=== PATIENT | female | born 1940 | race Caucasian/White ===

== ENCOUNTER 2017-04-23 13:05 | Inpatient (IN) | payer MEDICARE, OTHER ==
[~2017-04-23] VITALS: Ht 167.6 cm; Wt 63.5 kg
[~2017-04-23 13:05] MED LIST: CARB1TAB18 PO; CIPR-278 PO; DIVA125T PO; DIVA250T25 PO; DOCU250C16 PO; ESCI10TA PO; LORA0.5T2 PO; METF500T4 PO; NIFE60TA12 PO; OMEP20TA25 PO; QUET50TA PO; RISP.5 PO; SIMV20TA6 PO; TRAZ-144 PO; VICOT PO
[2017-04-23] MEDS ORDERED: FERR-89 PO (14:15)
[2017-04-23] MEDS ORDERED: GABA-531 PO (14:15)
[2017-04-23 14:28] LABS: BASOPHILS # (AUTO) 0.02 K/uL (0.00-0.20); BASOPHILS % (AUTO) 0.1 % (0.0-2.0); EOSINOPHILS # (AUTO) 0.07 K/uL (0.00-0.70); EOSINOPHILS % (AUTO) 0.44 % (1.0-6.0); HEMATOCRIT 38.5 % (36-46); HEMOGLOBIN 12.8 g/dL (12.0-16.0); LYMPHOCYTES # (AUTO) 2.4 K/uL (1.0-4.8); LYMPHOCYTES % (AUTO) 14.2 % (22.0-44.0); MEAN CORPUSCULAR HEMOGLOBIN 30.3 pg (26.0-34.0); MEAN CORPUSCULAR HGB CONC 33.3 G/dL (31.0-37.0); MEAN CORPUSCULAR VOLUME 91 fL (80-100); MONOCYTES # (AUTO) 1.4 K/uL (0.1-1.0); MONOCYTES % (AUTO) 8.4 % (2.0-9.0); NEUTROPHILS # (AUTO) 13.1 K/uL (1.8-7.7); NEUTROPHILS % (AUTO) 76.9 % (40.0-70.0); PLATELET COUNT (AUTO) 147 K/uL (150-450); RED BLOOD CELL COUNT(AUTO) 4.24 MIL/uL (4.00-5.20); RED CELL DISTRIBUTION WIDTH 14.9 % (11.5-14.5)
[2017-04-23 14:35] LABS: CALCIUM, TOTAL 9.3 mg/dL (8.8-10.5); CREATININE 1.36 mg/dL (0.60-1.30); POTASSIUM 3.7 mmol/L (3.5-5.1)
[2017-04-23 14:43] LABS: ALBUMIN 2.7 g/dL (3.4-5.0); BILIRUBIN,TOTAL 0.4 mg/dL (0.1-1.0); TOTAL PROTEIN, SERUM 7.2 g/dL (6.4-8.2)
[2017-04-23 14:43] LABS: GLUCOSE,POINT OF CARE 124 MG/DL (70-110)
[2017-04-23 17:33] LABS: APPEARANCE,URINE TURBID (CLEAR); GLUCOSE, URINE (UA) NEGATIVE (NEGATIVE); KETONES,URINE TRACE mg/dL (NEGATIVE); LEUKOCYTE ESTERASE ,URINE LARGE (NEGATIVE); NITRATE,URINE NEGATIVE (NEGATIVE); OCCULT BLOOD,URINE MODERATE (NEGATIVE); PROTEIN,URINE POS 1+ (NEGATIVE)
[2017-04-23 17:47] LABS: BILIRUBIN,URINE PRELIM. POSITIVE (NEGATIVE)
[2017-04-23 18:01] LABS: SQUAMOUS EPITHELIAL CELL,UR Moderate /LPF (None Seen)
[2017-04-23 18:02] LABS: WBC,URINE 51-100 /HPF (0-5)
[2017-04-23 18:05] LABS: BACTERIA,URINE Moderate /HPF (None Seen)
[2017-04-23] MEDS ORDERED: CefTRIAXone 1 GM/DEXTROSE 50 ML IV ONE (18:45)
[2017-04-23] MEDS ORDERED: 0.9% SODIUM CHLORIDE 10 ML SYRINGE IVP PRN (19:30)
[2017-04-23] MEDS ORDERED: ONDANSETRON HCL 4 MG/2 ML VIAL IVP PRN ×2 (19:30→19:45)
[2017-04-23] MEDS ORDERED: DEXTROSE 50%-WATER 25 GM/50 ML SYRINGE IVP PRN (19:30)
[2017-04-23] MEDS ORDERED: ACETAMINOPHEN 325 MG TABLET PO PRN ×2 (19:30→19:45)
[2017-04-23] MEDS ORDERED: MAGNESIUM HYDROXIDE SUSPENSION 30 ML UDCUP PO PRN (19:45)
[2017-04-23] MEDS ORDERED: ALBUTEROL SULFATE 2.5 MG/0.5 ML NEB SOLUTION NEB PRN (19:45)
[2017-04-23] MEDS ORDERED: BISACODYL 10 MG RECTAL RECTAL SUPPOSITORY PR PRN (19:45)
[2017-04-23] MEDS ORDERED: IPRATROPIUM BROMIDE 0.5 MG/2.5 ML NEB SOLUTION NEB PRN (19:45)
[2017-04-23 20:40] VITALS: BP 120/64
[2017-04-23] MEDS: SIMVASTATIN 20 MG TABLET PO SCH (21:25)
[2017-04-23] MEDS: DOCUSATE SODIUM 250 MG CAPSULE PO SCH (21:25)
[2017-04-23] MEDS: GABAPENTIN 300 MG CAPSULE PO SCH (21:25)
[2017-04-23] MEDS: HEPARIN SODIUM,PORCINE 5,000 UNITS/ML VIAL SQ SCH (21:25)
[2017-04-23 21:26] VITALS: BP 135/73
[2017-04-23] MEDS: SODIUM CHLORIDE 0.9% 1,000 ML IV SCH (21:34)
[2017-04-23] MEDS ORDERED: PNEUMOCOCCAL VACCINE POLYVALENT 0.5 ML VIAL [PPSV23] IM ONE (22:30)
[2017-04-23] MEDS: CARBIDOPA/LEVODOPA 10-100 MG TABLET PO SCH (23:16)
[2017-04-23] MEDS: QUEtiapine FUMARATE 25 MG TABLET PO SCH (23:16)
[2017-04-23 23:37] VITALS: BP 130/67
[2017-04-24 03:56] VITALS: BP 135/71
[2017-04-24 07:19] VITALS: BP 110/68
[2017-04-24 07:39] LABS: BASOPHILS # (AUTO) 0.02 K/uL (0.00-0.20); BASOPHILS % (AUTO) 0.2 % (0.0-2.0); EOSINOPHILS # (AUTO) 0.15 K/uL (0.00-0.70); EOSINOPHILS % (AUTO) 1.34 % (1.0-6.0); HEMATOCRIT 35.1 % (36-46); LYMPHOCYTES # (AUTO) 1.7 K/uL (1.0-4.8); LYMPHOCYTES % (AUTO) 15.4 % (22.0-44.0); MEAN CORPUSCULAR HEMOGLOBIN 30.3 pg (26.0-34.0); MEAN CORPUSCULAR HGB CONC 34.2 G/dL (31.0-37.0); MEAN CORPUSCULAR VOLUME 89 fL (80-100); MONOCYTES # (AUTO) 0.8 K/uL (0.1-1.0); MONOCYTES % (AUTO) 6.9 % (2.0-9.0); NEUTROPHILS # (AUTO) 8.6 K/uL (1.8-7.7); NEUTROPHILS % (AUTO) 76.2 % (40.0-70.0); PLATELET COUNT (AUTO) 116 K/uL (150-450); RED BLOOD CELL COUNT(AUTO) 3.96 MIL/uL (4.00-5.20); RED CELL DISTRIBUTION WIDTH 14.9 % (11.5-14.5)
[2017-04-24 07:51] LABS: HEMOGLOBIN A1C 5.3 % (4.5-6.2)
[2017-04-24 08:02] LABS: ALANINE AMINOTRANSFERASE 13 U/L (12-78); ALBUMIN 2.3 g/dL (3.4-5.0); ALKALINE PHOSPHATASE 80 U/L (46-116); ANION GAP 4 mmol/L (8-16); ASPARTATE AMINOTRANSFERASE 23 U/L (15-37); BILIRUBIN,TOTAL 0.3 mg/dL (0.1-1.0); CALCIUM, TOTAL 8.6 mg/dL (8.8-10.5); CARBON DIOXIDE 32 mmol/L (22-29); CHLORIDE 109 mmol/L (98-107); CREATININE 0.73 mg/dL (0.60-1.30); FREE T4 (FREE THYROXINE) 0.87 ng/dL (0.76-1.46); GLOMERULAR FILTR. RATE CALC > 60 mL/min (>60); GLUCOSE,RANDOM 87 mg/dL (70-110); PHOSPHORUS 3.2 mg/dL (2.5-4.9); POTASSIUM 4.1 mmol/L (3.5-5.1); SODIUM SERUM 145 mmol/L (136-145); THYROID STIMULATING HORMONE 0.57 uIU/mL (0.36-3.74); UREA NITROGEN, BLOOD 34 mg/dL (7-18)
[2017-04-24] MEDS: DOCUSATE SODIUM 250 MG CAPSULE PO SCH ×2 (08:32→19:47)
[2017-04-24] MEDS: GABAPENTIN 300 MG CAPSULE PO SCH ×3 (08:32→19:47)
[2017-04-24] MEDS: FERROUS SULFATE 325 MG EC TABLET PO SCH ×3 (08:32→17:28)
[2017-04-24] MEDS: NIFEdipine 60 MG ER TABLET PO SCH (08:32)
[2017-04-24] MEDS: RisperiDONE 0.5 MG TABLET PO SCH (08:32)
[2017-04-24] MEDS: PANTOPRAZOLE SODIUM 40 MG DR TABLET PO SCH (08:32)
[2017-04-24] MEDS: HEPARIN SODIUM,PORCINE 5,000 UNITS/ML VIAL SQ SCH ×2 (08:33→19:47)
[2017-04-24] MEDS: SODIUM CHLORIDE 0.9% 1,000 ML IV SCH (08:33)
[2017-04-24] MEDS: CARBIDOPA/LEVODOPA 10-100 MG TABLET PO SCH ×3 (08:33→19:47)
[2017-04-24] MEDS: DIVALPROEX SODIUM 125 MG DR TABLET PO SCH (08:49)
[2017-04-24 11:17] VITALS: BP 118/62
[2017-04-24] MEDS: DIVALPROEX SODIUM 250 MG DR TABLET PO SCH (17:28)
[2017-04-24] MEDS ORDERED: CefTRIAXone 1 GM/DEXTROSE 50 ML IV SCH (18:00)
[2017-04-24] MEDS ORDERED: MAGNESIUM SULFATE 2 GM in DEXTROSE 5%-WATER 50 ML IV PRN (18:15)
[2017-04-24] MEDS ORDERED: MAGNESIUM SULFATE 4 GM/WATER 100 ML IV PRN (18:15)
[2017-04-24] MEDS ORDERED: MAGNESIUM OXIDE 400 MG TABLET PO PRN (18:15)
[2017-04-24 19:43] VITALS: BP 151/77
[2017-04-24] MEDS: SIMVASTATIN 20 MG TABLET PO SCH (19:47)
[2017-04-24] MEDS: QUEtiapine FUMARATE 25 MG TABLET PO SCH (19:47)
[2017-04-24 23:43] VITALS: BP 111/55
[2017-04-25 00:24] LABS: GLUCOMETER DEV NAME(LOC) 5N 1M; GLUCOSE,POINT OF CARE 88 MG/DL (70-110)
[2017-04-25 00:24] LABS: GLUCOMETER DEV NAME(LOC) 5N 1M; GLUCOSE,POINT OF CARE 76 MG/DL (70-110)
[2017-04-25] MEDS: SODIUM CHLORIDE 0.9% 1,000 ML IV SCH ×2 (05:10→12:40)
[2017-04-25 05:29] VITALS: BP 121/60
[2017-04-25 07:06] VITALS: BP 131/63
[2017-04-25] MEDS: DOCUSATE SODIUM 250 MG CAPSULE PO SCH ×2 (08:40→20:13)
[2017-04-25] MEDS: PANTOPRAZOLE SODIUM 40 MG DR TABLET PO SCH (08:40)
[2017-04-25] MEDS: SILVER 45 ML GEL TP SCH (08:40)
[2017-04-25] MEDS: HEPARIN SODIUM,PORCINE 5,000 UNITS/ML VIAL SQ SCH ×2 (08:40→20:12)
[2017-04-25] MEDS: FERROUS SULFATE 325 MG EC TABLET PO SCH ×3 (08:40→17:24)
[2017-04-25] MEDS: GABAPENTIN 300 MG CAPSULE PO SCH ×3 (08:40→20:13)
[2017-04-25] MEDS: DIVALPROEX SODIUM 125 MG DR TABLET PO SCH (08:41)
[2017-04-25] MEDS: RisperiDONE 0.5 MG TABLET PO SCH (08:41)
[2017-04-25] MEDS: NIFEdipine 60 MG ER TABLET PO SCH (08:42)
[2017-04-25] MEDS: CARBIDOPA/LEVODOPA 10-100 MG TABLET PO SCH ×3 (08:42→20:13)
[2017-04-25] MEDS ORDERED: *CLINICAL-LEVOFLOXACIN IVPB DOSING CLINICAL ONE (08:45)
[2017-04-25] MEDS ORDERED: LEVOFLOXACIN 750 MG/D5% WATER 150 ML IV SCH (09:00)
[2017-04-25 11:11] VITALS: BP 122/60
[2017-04-25] MEDS: INSULIN ASPART 100 UNITS/ML SQ PRN (11:59)
[2017-04-25 16:16] VITALS: BP_SYST 156; BP_DIAS 11; BP_DIAS 110
[2017-04-25] MEDS: DIVALPROEX SODIUM 250 MG DR TABLET PO SCH (17:23)
[2017-04-25 19:47] VITALS: BP 153/94
[2017-04-25] MEDS: QUEtiapine FUMARATE 25 MG TABLET PO SCH (20:13)
[2017-04-25] MEDS: SIMVASTATIN 20 MG TABLET PO SCH (20:13)
[2017-04-25 20:54] LABS: GLUCOMETER DEV NAME(LOC) 5S 2N; GLUCOSE,POINT OF CARE 92 MG/DL (70-110)
[2017-04-25 20:54] LABS: GLUCOMETER DEV NAME(LOC) 5N 2R; GLUCOSE,POINT OF CARE 95 MG/DL (70-110)
[2017-04-25 20:54] LABS: GLUCOMETER DEV NAME(LOC) 5N 2R; GLUCOSE,POINT OF CARE 106 MG/DL (70-110)
[2017-04-25 20:54] LABS: GLUCOMETER DEV NAME(LOC) 5S 2N; GLUCOSE,POINT OF CARE 91 MG/DL (70-110)
[2017-04-25 20:54] LABS: GLUCOMETER DEV NAME(LOC) 5N 2R; GLUCOSE,POINT OF CARE 94 MG/DL (70-110)
[2017-04-25 20:54] LABS: GLUCOMETER DEV NAME(LOC) 5N 2R; GLUCOSE,POINT OF CARE 95 MG/DL (70-110)
[2017-04-26 00:11] VITALS: BP 141/82
[2017-04-26] MEDS: SODIUM CHLORIDE 0.9% 1,000 ML IV SCH ×2 (03:24→15:05)
[2017-04-26 04:34] VITALS: BP 150/83
[2017-04-26 06:48] LABS: GLUCOMETER DEV NAME(LOC) 5N 1M; GLUCOSE,POINT OF CARE 123 MG/DL (70-110)
[2017-04-26 07:42] VITALS: BP 155/56
[2017-04-26] MEDS: HEPARIN SODIUM,PORCINE 5,000 UNITS/ML VIAL SQ SCH (07:57)
[2017-04-26] MEDS: DOCUSATE SODIUM 250 MG CAPSULE PO SCH (07:57)
[2017-04-26] MEDS: GABAPENTIN 300 MG CAPSULE PO SCH ×2 (07:57→16:10)
[2017-04-26] MEDS: CARBIDOPA/LEVODOPA 10-100 MG TABLET PO SCH ×2 (07:57→16:10)
[2017-04-26] MEDS: PANTOPRAZOLE SODIUM 40 MG DR TABLET PO SCH (07:57)
[2017-04-26] MEDS: FERROUS SULFATE 325 MG EC TABLET PO SCH ×3 (07:57→17:23)
[2017-04-26] MEDS: DIVALPROEX SODIUM 125 MG DR TABLET PO SCH (07:58)
[2017-04-26] MEDS: NIFEdipine 60 MG ER TABLET PO SCH (07:58)
[2017-04-26] MEDS: RisperiDONE 0.5 MG TABLET PO SCH (07:58)
[2017-04-26] MEDS: SILVER 45 ML GEL TP SCH (07:59)
[2017-04-26 11:24] VITALS: BP 101/48
[2017-04-26] MEDS: INSULIN ASPART 100 UNITS/ML SQ PRN (13:11)
[2017-04-26 15:12] VITALS: BP 111/66
[2017-04-26] MEDS: DIVALPROEX SODIUM 250 MG DR TABLET PO SCH (17:23)
[2017-04-27 06:08] LABS: GLUCOMETER DEV NAME(LOC) 5S 2N; GLUCOSE,POINT OF CARE 93 MG/DL (70-110)
[2017-04-27 06:08] LABS: GLUCOMETER DEV NAME(LOC) 5N 2R; GLUCOSE,POINT OF CARE 93 MG/DL (70-110)
== END 2017-04-26 18:40 | DRG 871 ==
LOC: EMS 13:08 → 6N 18:52 → 5S 20:40
PROVIDERS: ADMIT Internal Medicine; ATTEND Internal Medicine
PROC: 0HDNXZZ Extraction of Left Foot Skin, External Approach (ICD-10-PCS; 2017-04-24)
PROC: 3E0234Z Introduction of Serum, Toxoid and Vaccine into Muscle, Percutaneous Approach (ICD-10-PCS; principal; 2017-04-26)
DX: A41.9 Sepsis, unspecified organism (principal); G92 Toxic encephalopathy; E11.40 Type 2 diabetes mellitus with diabetic neuropathy, unspecified; E11.621 Type 2 diabetes mellitus with foot ulcer; L97.429 Non-pressure chronic ulcer of left heel and midfoot with unspecified severity; N39.0 Urinary tract infection, site not specified; G20 Parkinson's disease; G80.9 Cerebral palsy, unspecified; K21.9 Gastro-esophageal reflux disease without esophagitis; I10 Essential (primary) hypertension; M19.90 Unspecified osteoarthritis, unspecified site; G30.9 Alzheimer's disease, unspecified; F02.80 Dementia in other diseases classified elsewhere, unspecified severity, without behavioral disturbance, psychotic disturbance, mood disturbance, and anxiety; Z83.3 Family history of diabetes mellitus; Z79.899 Other long term (current) drug therapy; Z23 Encounter for immunization
CPT/HCPCS: 51701; 70450; 82962; 83036; 83735; 84100; 84145; 84439; 84443; 87086; 90471; 93005; 93306; 93925; 93970; 96365; 97162; 97530; 99285; J0696; J1644; J1956; J3475; J7030; J7060

== ENCOUNTER 2019-03-15 22:21 | Inpatient (IN) | payer MEDICARE, OTHER ==
[~2019-03-15 22:21] MED LIST changes: -CIPR-278 PO; +DIVA-53 PO; -DIVA125T PO; +DIVA125T31 PO; -DIVA250T25 PO; -ESCI10TA PO; +FERR-89 PO; +GABA-531 PO; +METF-444 PO; -METF500T4 PO; -TRAZ-144 PO; +TRAZ-252 PO; -VICOT PO
[2019-03-15 22:43] VITALS: BP 120/68
[2019-03-16] VITALS (7 sets, daily range): BP systolic 110–162; BP diastolic 56–86
[2019-03-16] MEDS ORDERED: DEXTROSE 50%-WATER 25 GM/50 ML SYRINGE IVP PRN (00:15)
[2019-03-16 01:28] LABS: GLUCOMETER DEV NAME(LOC) 6N.1; GLUCOSE,POINT OF CARE 77 MG/DL (70-110)
[2019-03-16 05:50] LABS: BASOPHILS % (AUTO) 0.6 % (0.0-2.0); EOSINOPHILS % (AUTO) 2.5 % (1.0-6.0); HEMATOCRIT 35.9 % (36-46); HEMOGLOBIN 11.6 g/dL (12.0-16.0); LYMPHOCYTES # (AUTO) 1.7 K/uL (1.0-4.8); LYMPHOCYTES % (AUTO) 33.7 % (22.0-44.0); MEAN CORPUSCULAR HGB CONC 32.4 G/dL (31.0-37.0); MEAN CORPUSCULAR VOLUME 93 fL (80-100); MONOCYTES # (AUTO) 0.5 K/uL (0.1-1.0); NEUTROPHILS # (AUTO) 2.6 K/uL (1.8-7.7); NEUTROPHILS % (AUTO) 53.2 % (40.0-70.0); PLATELET COUNT (AUTO) 137 K/uL (150-450); RED BLOOD CELL COUNT(AUTO) 3.88 MIL/uL (4.00-5.20); RED CELL DISTRIBUTION WIDTH 15.2 % (11.5-14.5)
[2019-03-16 06:20] LABS: ALANINE AMINOTRANSFERASE 14 U/L (12-78); ALBUMIN 2.2 g/dL (3.4-5.0); ALKALINE PHOSPHATASE 100 U/L (46-116); ANION GAP 3 mmol/L (8-16); ASPARTATE AMINOTRANSFERASE 30 U/L (15-37); BILIRUBIN,TOTAL 0.4 mg/dL (0.1-1.0); CARBON DIOXIDE 30 mmol/L (22-29); CHLORIDE 107 mmol/L (98-107); CREATININE 0.64 mg/dL (0.60-1.30); GLUCOSE,RANDOM 83 mg/dL (70-110); POTASSIUM 4.1 mmol/L (3.5-5.1); SODIUM SERUM 140 mmol/L (136-145); TOTAL PROTEIN, SERUM 5.9 g/dL (6.4-8.2); UREA NITROGEN, BLOOD 18 mg/dL (7-18)
[2019-03-16 07:00] LABS: GLOMERULAR FILTR. RATE CALC > 60 mL/min (>60)
[2019-03-16 07:51] LABS: GLUCOMETER DEV NAME(LOC) 6N.1; GLUCOSE,POINT OF CARE 75 MG/DL (70-110)
[2019-03-16] MEDS: FERROUS SULFATE 325 MG EC TABLET PO SCH ×3 (08:39→15:33)
[2019-03-16] MEDS: DOCUSATE SODIUM 250 MG CAPSULE PO SCH (08:39)
[2019-03-16] MEDS: NIFEdipine 60 MG ER TABLET PO SCH (08:40)
[2019-03-16] MEDS: DIVALPROEX SODIUM 125 MG DR TABLET PO SCH (08:40)
[2019-03-16] MEDS: GABAPENTIN 300 MG CAPSULE PO SCH ×3 (08:40→20:18)
[2019-03-16] MEDS: MetFORMIN HCL 500 MG TABLET PO SCH (08:40)
[2019-03-16] MEDS: SERTRALINE HCL 50 MG TABLET PO SCH (08:41)
[2019-03-16] MEDS: CARBIDOPA/LEVODOPA 10-100 MG TABLET PO SCH ×3 (08:41→20:18)
[2019-03-16] MEDS ORDERED: MAGNESIUM SULFATE 2 GM/WATER 50 ML IV ONE (11:00)
[2019-03-16 14:45] LABS: GLUCOMETER DEV NAME(LOC) 6N.2; GLUCOSE,POINT OF CARE 87 MG/DL (70-110)
[2019-03-16] MEDS ORDERED: SODIUM CHLORIDE 0.9% 500 ML IV ONE (14:50)
[2019-03-16] MEDS: DIVALPROEX SODIUM 250 MG DR TABLET PO SCH (15:32)
[2019-03-16 18:31] LABS: GLUCOMETER DEV NAME(LOC) 6N.2; GLUCOSE,POINT OF CARE 95 MG/DL (70-110)
[2019-03-16] MEDS: QUEtiapine FUMARATE 50 MG ER TABLET PO SCH (20:18)
[2019-03-16] MEDS: SIMVASTATIN 20 MG TABLET PO SCH (20:18)
[2019-03-16] MEDS: ASCORBIC ACID 500 MG TABLET PO SCH (20:18)
[2019-03-16] MEDS: TraZODone HCL 50 MG TABLET PO SCH (21:14)
[2019-03-17 02:25] LABS: GLUCOMETER DEV NAME(LOC) 6N.2; GLUCOSE,POINT OF CARE 96 MG/DL (70-110)
[2019-03-17 04:00] VITALS: BP 152/92
[2019-03-17 07:19] LABS: HEMOGLOBIN A1C 4.5 % (4.5-6.2)
[2019-03-17 07:25] VITALS: BP 156/91
[2019-03-17 07:31] LABS: MAGNESIUM 1.7 mg/dL (1.80-2.40); PHOSPHORUS 3.7 mg/dL (2.5-4.9)
[2019-03-17] MEDS: GABAPENTIN 300 MG CAPSULE PO SCH ×3 (09:13→20:33)
[2019-03-17] MEDS: SERTRALINE HCL 50 MG TABLET PO SCH (09:13)
[2019-03-17] MEDS: CARBIDOPA/LEVODOPA 10-100 MG TABLET PO SCH ×3 (09:13→20:32)
[2019-03-17] MEDS: ASCORBIC ACID 500 MG TABLET PO SCH ×2 (09:13→20:31)
[2019-03-17] MEDS: FERROUS SULFATE 325 MG EC TABLET PO SCH ×3 (09:13→17:24)
[2019-03-17] MEDS: MetFORMIN HCL 500 MG TABLET PO SCH (09:13)
[2019-03-17] MEDS: DOCUSATE SODIUM 250 MG CAPSULE PO SCH (09:13)
[2019-03-17] MEDS: ZINC SULFATE 220 MG CAPSULE PO SCH (09:13)
[2019-03-17] MEDS: DIVALPROEX SODIUM 125 MG DR TABLET PO SCH (09:14)
[2019-03-17] MEDS: MULTIVITAMINS WITH MINERALS, THERAPEUTIC TABLET PO SCH (09:14)
[2019-03-17] MEDS: NIFEdipine 60 MG ER TABLET PO SCH (09:14)
[2019-03-17 11:25] VITALS: BP 119/70
[2019-03-17] MEDS: INSULIN LISPRO 100 UNITS/ML SQ PRN ×2 (12:00→17:28)
[2019-03-17] MEDS: SODIUM HYPOCHLORITE 0.25% [HALF STRENGTH] 473 ML SOLUTION TP SCH (17:24)
[2019-03-17] MEDS: DIVALPROEX SODIUM 250 MG DR TABLET PO SCH (17:24)
[2019-03-17 17:26] LABS: GLUCOMETER DEV NAME(LOC) 6N.2; GLUCOSE,POINT OF CARE 76 MG/DL (70-110)
[2019-03-17 18:56] LABS: GLUCOMETER DEV NAME(LOC) 4E.2; GLUCOSE,POINT OF CARE 94 MG/DL (70-110)
[2019-03-17 18:56] LABS: GLUCOMETER DEV NAME(LOC) 4E.2; GLUCOSE,POINT OF CARE 90 MG/DL (70-110)
[2019-03-17 19:44] VITALS: BP 133/74
[2019-03-17] MEDS: TraZODone HCL 50 MG TABLET PO SCH (20:31)
[2019-03-17] MEDS: SIMVASTATIN 20 MG TABLET PO SCH (20:31)
[2019-03-17] MEDS: QUEtiapine FUMARATE 50 MG ER TABLET PO SCH (20:31)
[2019-03-17 23:54] VITALS: BP 131/71
[2019-03-18 05:20] LABS: GLUCOMETER DEV NAME(LOC) 4E.2; GLUCOSE,POINT OF CARE 84 MG/DL (70-110)
[2019-03-18 07:54] VITALS: BP 148/88
[2019-03-18] MEDS: DOCUSATE SODIUM 250 MG CAPSULE PO SCH (08:21)
[2019-03-18] MEDS: ZINC SULFATE 220 MG CAPSULE PO SCH (08:21)
[2019-03-18] MEDS: CARBIDOPA/LEVODOPA 10-100 MG TABLET PO SCH ×2 (08:21→16:48)
[2019-03-18] MEDS: GABAPENTIN 300 MG CAPSULE PO SCH ×2 (08:22→16:47)
[2019-03-18] MEDS: NIFEdipine 60 MG ER TABLET PO SCH (08:22)
[2019-03-18] MEDS: MetFORMIN HCL 500 MG TABLET PO SCH (08:22)
[2019-03-18] MEDS: MULTIVITAMINS WITH MINERALS, THERAPEUTIC TABLET PO SCH (08:22)
[2019-03-18] MEDS: SERTRALINE HCL 50 MG TABLET PO SCH (08:22)
[2019-03-18] MEDS: ASCORBIC ACID 500 MG TABLET PO SCH (08:22)
[2019-03-18] MEDS: DIVALPROEX SODIUM 125 MG DR TABLET PO SCH (08:22)
[2019-03-18] MEDS: FERROUS SULFATE 325 MG EC TABLET PO SCH ×3 (08:23→16:49)
[2019-03-18 11:27] VITALS: BP 106/55
[2019-03-18] MEDS: INSULIN LISPRO 100 UNITS/ML SQ PRN ×2 (11:48→16:54)
[2019-03-18 15:29] VITALS: BP 114/60
[2019-03-18] MEDS: SODIUM HYPOCHLORITE 0.25% [HALF STRENGTH] 473 ML SOLUTION TP SCH (16:47)
[2019-03-18] MEDS: DIVALPROEX SODIUM 250 MG DR TABLET PO SCH (16:48)
[2019-03-18] MEDS ORDERED: CloNIDine HCL 0.1 MG TABLET PO ONE (17:15)
[2019-03-18 18:36] LABS: GLUCOMETER DEV NAME(LOC) 6N.2; GLUCOSE,POINT OF CARE 82 MG/DL (70-110)
[2019-03-18 18:36] LABS: GLUCOMETER DEV NAME(LOC) 6N.2; GLUCOSE,POINT OF CARE 93 MG/DL (70-110)
[2019-03-19 00:21] LABS: GLUCOMETER DEV NAME(LOC) 4E.2; GLUCOSE,POINT OF CARE 106 MG/DL (70-110)
== END 2019-03-18 18:50 | disposition home or self-care (01) | DRG 592 ==
LOC: 6N 22:21 → 4E 03-16 10:50
PROVIDERS: ADMIT Hospitalist; ATTEND Hospitalist
DX: L89.93 Pressure ulcer of unspecified site, stage 3 (principal); E43 Unspecified severe protein-calorie malnutrition; E78.5 Hyperlipidemia, unspecified; I10 Essential (primary) hypertension; K21.9 Gastro-esophageal reflux disease without esophagitis; E11.9 Type 2 diabetes mellitus without complications; Z83.3 Family history of diabetes mellitus; G20 Parkinson's disease; M19.90 Unspecified osteoarthritis, unspecified site
CPT/HCPCS: 83036; 83735; 84100; 87081; 92610; G0378; J3475; J7040